=== PATIENT | female | born 1935 | race Caucasian/White ===

== ENCOUNTER 2016-10-23 19:19 | Emergency (ER) | payer OTHER ==
--- NOTE | ~2016-10-23 | CR72 ---
[facility] A Service of [facility] RADIOLOGY TEXT RESULTS PATIENT: WELLINGTON DIAS LOCATION: [facility] : 34 UNIT #: [id number] AGE: [address]: Alex Sánchez DO SEX: F ORDER DR: [id number] [facility] [address] [place], [place] [address] [id number] MR#: [id number] Acc #: [id number] NAME: WELLINGTON DIAS. : 1935 SEX: F STUDY DATE/TIME: 10/23/2016 18:00 UNIT: [facility] ROOM: STUDY DESCRIPTION: CR Chest Single View Portable Attending Physician: Alex Sánchez D.O. Ordering Physician: Alex Sánchez D.O. Primary Care Physician: Sherry Brennan M.D. MEDICAL IMAGING REPORT This report is preliminary unless electronic signature is present EXAM Portable chest, 10/23/2016 HISTORY An 81-year-old female status post intubation today. Found down today. Shortness of breath. COMPARISON STUDIES 10/10/2016 FINDINGS Frontal chest demonstrates placement of an endotracheal tube with tip projecting less than 2 cm above the tatyana. Consider retraction approximately 4 cm. The lungs are well aerated. No pneumothorax. Mild cardiomegaly. Mediastinum and pulmonary vasculature are unremarkable. IMPRESSION 1. Placement of an endotracheal tube. The tip projects less than 2 cm above the tatyana. Consider retraction approximately 3 - 4 cm. 2. Both lungs well aerated. No pneumothorax. 3. Mild cardiomegaly. Dictated by... Celio Leigh M.D. THIS IS AN ELECTRONICALLY VERIFIED REPORT Celio Leigh M.D. at 10/24/2016 4:43 PM Jenifer TD: 10/23/2016 23:03 JOB #: [id number] [facility] A Service of [facility] RADIOLOGY TEXT RESULTS PATIENT: WELLINGTON DIAS LOCATION: [facility] #: [id number] : 34 UNIT #: [id number] AGE: [address]: Alex Sánchez DO SEX: F ORDER DR: MEDICAL IMAGING REPORT Page 1 of 1 COPY
--- NOTE | ~2016-10-23 | EKG ---
PATIENT: WELLINGTON DISA UNIT #: [id number] Ventricular Rate: 106 BPM Atrial Rate: 106 BPM P-R Interval: 150 ms QRS Duration: 80 ms Q-T Interval: 356 ms QTC Calculation(Bezet): 472 ms P [place]: 95 degrees Calculated R [place]: -45 degrees Calculated T [place]: 85 degrees Diagnosis Line: Sinus tachycardia Diagnosis Line: Possible Left atrial enlargement Diagnosis Line: Indeterminate axis Diagnosis Line: Poor R wave progression questionable lead position Diagnosis Line: or body habitus Diagnosis Line: Lateral injury pattern Diagnosis Line: Abnormal ECG Diagnosis Line: When compared with ECG of 10-OCT-2015 06:28, Diagnosis Line: ST abnormalities worse anterolaterally Diagnosis Line: Confirmed by BENNY NEWELL MD ([id number]) on Diagnosis Line: 10/23/2016 11:31:58 PM INTERPRETING MD: ABILIO
--- NOTE | ~2016-10-23 | CT71 ---
[facility] A Service of [facility] RADIOLOGY TEXT RESULTS PATIENT: WELLINGTON DIAS LOCATION: [facility] : 34 UNIT #: [id number] AGE: [address]: Alex Sánchez DO SEX: F ORDER DR: [id number] [facility] [address] [place], [place] [address] [id number] E MR#: [id number] Acc #: [id number] NAME: WELLINGTON DIAS. : 1935 SEX: F STUDY DATE/TIME: 10/23/2016 18:00 UNIT: [facility] ROOM: STUDY DESCRIPTION: CT Head Wo Contrast Attending Physician: Alex Sánchez D.O. Ordering Physician: Alex Sánchez D.O. Primary Care Physician: Sherry Brennan M.D. MEDICAL IMAGING REPORT This report is preliminary unless electronic signature is present EXAM CT head without contrast 10/23/2016 HISTORY An 81-year-old female with altered mental status today. Found down on bathroom floor today. Hit head on trash can. COMPARISON STUDIES Comparison CT head 03/18/2016 TECHNIQUE Routine unenhanced axial images performed through the brain. This CT exam was performed with one or more of the following radiation dose reduction techniques: automatic exposure control, adjustment of mA and/or kV according to patient size, and iterative reconstruction. FINDINGS There is a large intraventricular hemorrhage with blood filling the entire right lateral ventricle, third ventricle, and fourth ventricle. There is a [id number] amount of blood in the left lateral ventricle. This results in moderate hydrocephalus. There appears to be a small extension of intraparenchymal hemorrhage from the right basal ganglia, which may represent the origin of the bleed. No subdural or subarachnoid blood identified. No evidence of acute infarction. No acute bony abnormality. Mucosal thickening in the left frontal sinus and left sphenoid sinus. Visualized mastoid air cells are clear. IMPRESSION 1. Large intraventricular hemorrhage with associated hydrocephalus. There is a small amount of intraparenchymal hemorrhage in the right [facility] A Service of [facility] RADIOLOGY TEXT RESULTS PATIENT: WELLINGTON DIAS LOCATION: [facility] : 34 UNIT #: [id number] AGE: [address]: Alex Sánchez DO SEX: F ORDER DR: basal ganglia, which appears to extend into the right lateral ventricle. No significant subdural or subarachnoid blood identified. 2. Mucosal thickening left frontal sinus and left sphenoid sinus. 3. Critical results were discussed with the emergency room physician, Dr. Alex Sánchez, at 18:30 hours 10/23/2016. Dictated by... Celio Leigh M.D. THIS IS AN ELECTRONICALLY VERIFIED REPORT Celio Leigh M.D. at 10/24/2016 4:44 PM GIL/sushil TD: 10/23/2016 23:59 JOB #: [id number] MEDICAL IMAGING REPORT Page 1 of 1 COPY
[2016-10-23 18:13] LABS: POC - CKMB 16.2 ng/mL (0.0-7.9); POC - TROPONIN 2.12 ng/mL (<=0.05)
[2016-10-23 18:32] LABS: BASOPHIL% 0.1 % (0-2.5); HEMATOCRIT 32.1 % (35.0-45.0); HEMOGLOBIN 10.3 gm/dL (12.0-16.0); LYMPHOCYTE# 0.6 X10e3 (1.0-3.5); LYMPHOCYTE% 2.4 % (17.0-45.0); MEAN CELL VOLUME 90.1 FL (83-96); MEAN CORPUSCULAR HEMOGLOBIN 28.8 PG (28-34); MEAN PLATELET VOLUME 7.3 FL (6.5-11.5); MONOCYTE# 2.4 X10e3 (0-1.0); MONOCYTE% 9.8 % (3.0-12.0); NEUTROPHIL# 21.6 X10e3 (1.5-7.1); NEUTROPHIL% 87.7 % (40-75); PLATELET COUNT 355 X10e3 (140-420); RED BLOOD COUNT 3.57 X10e (3.90-5.30); RED CELL DISTRIBUTION WIDTH 14.1 % (11.0-15.5); WHITE BLOOD COUNT 24.7 X10e3 (4.0-10.5)
[2016-10-23 18:33] LABS: DIFF IND YES
[2016-10-23 18:42] LABS: INR 1.1; PARTIAL THROMBOPLASTIN TIME 23.3 SECONDS (23.5-31.3); PROTHROMBIN TIME (PATIENT) 11.3 SECONDS (9.6-11.5)
[2016-10-23 18:51] LABS: ALBUMIN SERUM 3.7 g/dL (3.5-5.0); ALKALINE PHOSPHATASE 111 U/L (32-92); ALT (SGPT) 38 U/L (10-40); AST (SGOT) 73 U/L (10-42); BILIRUBIN, DIRECT 0.1 mg/dL (0.0-0.2); BILIRUBIN,INDIRECT 0.3 mg/dL (0.0-0.9); BILIRUBIN,TOTAL 0.4 mg/dL (0.2-2.0); BLOOD UREA NITROGEN 13 mg/dL (9-23); BUN/CREATININE RATIO 16.25; CALCIUM SERUM 8.9 mg/dL (8.4-10.2); CARBON DIOXIDE 22 mmol/L (22-31); CHLORIDE 98 mmol/L (100-111); CREATININE SERUM 0.8 mg/dL (0.6-1.4); GLOM FILT RATE Estimated 68.7 mL/min (>60); GLUCOSE FASTING 213 mg/dL (70-110); POTASSIUM 4.3 mmol/L (3.5-5.1); PROTEIN TOTAL SERUM 6.7 g/dL (6.0-8.3); SALICYLATE <4.0 mg/dL; SODIUM 132 mmol/L (135-145)
[2016-10-23 18:52] LABS: ACETAMINOPHEN <10 ug/mL; ALCOHOL BLOOD <5 mg/dL (0)
[2016-10-23 18:55] LABS: PLATELET ESTIMATE NORMAL (NORMAL)
[2016-10-23 18:56] LABS: ANISOCYTOSIS SL
[~2016-10-23 19:19] MED LIST: AGGRENOX PO; DIOVAN PO; DIOVAN160 MG PO; FAMVIR500 M1 PO; LEVAQUIN250 MG PO; MOBIC PO; OMEPRAZOLE20 M1 PO; PAXIL; PREDNISONE PO; PROTONIX; SKELAXIN PO; SYNTHROID PO; SYNTHROID88 MCG PO; ULTRAM PO; VALSARTAN-HCTZ1 EAC3 PO
[2016-10-23 19:34] LABS: URINE SOURCE CLEAN CATCH
[2016-10-23 19:39] LABS: URINE APPEARANCE CLEAR; URINE BILIRUBIN NEG (NEG); URINE BLOOD 2+ (NEG); URINE COLOR YELLOW; URINE GLUCOSE 250 MG/DL (NEG); URINE KETONE NEG (NEG); URINE LEUKOCYTE ESTERASE NEG (NEG); URINE NITRATE NEG (NEG); URINE PH 5.5 (5-8); URINE PROTEIN 1+ (NEG); URINE SPECIFIC GRAVITY 1.017 (1.003-1.035)
[2016-10-23 19:41] LABS: URINE BACTERIA AUWI NEG (NEGATIVE); URINE SQUAMOUS EPITHELIAL CELL OCC /[HPF]
[2016-10-23 19:44] LABS: CULTURE INDICATED? NO
[2016-10-23 19:49] LABS: AMPHETAMINE NEG (NEG); BARBITURATES NEG (NEG); BENZODIAZEPINES NEG (NEG); COCAINE NEG (NEG); MARIJUANA NEG (NEG); OPIATES NEG (NEG); TRICYCLIC ANTIDEPRESSANTS NEG (NEG); U METHADONE NEG (NEG)
== END 2016-10-23 19:40 | disposition hospice, home (50) ==
LOC: CED 19:19
PROVIDERS: Emergency Medicine
DX: I62.9 Nontraumatic intracranial hemorrhage, unspecified (principal); I21.19 ST elevation (STEMI) myocardial infarction involving other coronary artery of inferior wall; J96.00 Acute respiratory failure, unspecified whether with hypoxia or hypercapnia; Z98.890 Other specified postprocedural states; Z88.0 Allergy status to penicillin; Z88.2 Allergy status to sulfonamides; Z88.5 Allergy status to narcotic agent
CPT/HCPCS: 51702; 70450; 71010; 80048; 80076; 80307; 81003; 82140; 82553; 82947; 83605; 84484; 85025; 85610; 85730; 86850; 86870; 86900; 86901; 93005; 94002; 96374; 96375; 99291; G0480; J1644; J2150; J2597